=== PATIENT | female | born 1940 | race Caucasian/White ===

== ENCOUNTER → 2016-09-14 | Outpatient (CLI) | payer MEDICARE ==
[~2016-09-14] MED LIST: GLUCOPHAGE 500500 MG PO
== END ==
LOC: KOH-I 15:02
DX: I63.9 Cerebral infarction, unspecified (principal); M50.30 Other cervical disc degeneration, unspecified cervical region
CPT/HCPCS: 72050; 73030

== ENCOUNTER 2016-09-24 09:45 | Emergency (ER) | payer MEDICARE | END 2016-09-24 12:00 | disposition home or self-care (01) | LOC: ER1 09:45 | DX: M75.52 Bursitis of left shoulder (principal); I10 Essential (primary) hypertension; Z79.02 Long term (current) use of antithrombotics/antiplatelets; Z86.73 Personal history of transient ischemic attack (TIA), and cerebral infarction without residual deficits | CPT/HCPCS: 99283; J3301; Q0162 ==

== ENCOUNTER → 2020-11-10 | Day surgery (SDC) | payer MEDICARE, OTHER ==
[~2020-11-10] MED LIST changes: +ABILIFY 5 MG TAB5 MG PO; +BUTALB-ACETAMI1 EAC1 PO; +CYCLOBENZAPRINE10 MG PO; +IRON325 M1 PO; +LASIX20 MG PO; +LEVOXYL100 MCG PO; +LEXAPRO20 MG PO; +LIORESAL TAB 1010 MG PO; +LIPITOR TAB 2020 MG PO; +NORCO 5-325 TA1 EACH PO; +NORVASC10 MG PO; +PLAVIX 75 MG TA75 MG PO; +PRINIVIL20 MG PO; +PROTONIX40 MG PO; +XANAX1 MG PO
== END | disposition home or self-care (01) ==
LOC: OR 05:47
DX: D50.9 Iron deficiency anemia, unspecified (principal); K31.9 Disease of stomach and duodenum, unspecified; K29.70 Gastritis, unspecified, without bleeding; K64.4 Residual hemorrhoidal skin tags; I78.1 Nevus, non-neoplastic; F41.9 Anxiety disorder, unspecified; J45.909 Unspecified asthma, uncomplicated; I10 Essential (primary) hypertension; F32.9 Major depressive disorder, single episode, unspecified; K21.9 Gastro-esophageal reflux disease without esophagitis; E78.5 Hyperlipidemia, unspecified; E03.9 Hypothyroidism, unspecified; G25.81 Restless legs syndrome; M81.0 Age-related osteoporosis without current pathological fracture; Z87.891 Personal history of nicotine dependence; Z86.73 Personal history of transient ischemic attack (TIA), and cerebral infarction without residual deficits; Z99.3 Dependence on wheelchair; Z88.8 Allergy status to other drugs, medicaments and biological substances; Z79.02 Long term (current) use of antithrombotics/antiplatelets; Z79.899 Other long term (current) drug therapy
CPT/HCPCS: J2405; J2704; J7040; J7120

== ENCOUNTER 2021-02-12 20:02 | Emergency (ER) | payer MEDICARE | END 2021-02-12 20:57 | disposition left against medical advice (07) | LOC: ER1 20:02 | DX: Z53.21 Procedure and treatment not carried out due to patient leaving prior to being seen by health care provider (principal) ==

== ENCOUNTER → 2021-12-12 | Outpatient (CLI) | payer MEDICARE | LOC: EXRD 15:00 | DX: L03.119 Cellulitis of unspecified part of limb (principal); R60.9 Edema, unspecified; M79.605 Pain in left leg; M79.89 Other specified soft tissue disorders | CPT/HCPCS: 93971 ==

== ENCOUNTER 2021-12-17 12:23 | Inpatient (IN) | payer MEDICARE, MEDICAID ==
[~2021-12-17] VITALS: Ht 177.8 cm; Wt 80.3 kg
[~2021-12-17 12:23] MED LIST changes: +ACETAMINOPHEN-1 EAC1 PO; -BUTALB-ACETAMI1 EAC1 PO; +LISINOPRIL20 MG PO; -PRINIVIL20 MG PO
[2021-12-17 13:16] LABS: HEMOGLOBIN 10.1 gm/dl (12.3-15.3); RED BLOOD COUNT 3.34 M/UL (4.00-5.10)
[2021-12-17 13:48] LABS: BUN/CREATININE RATIO 13 (0-10)
[2021-12-17] MEDS ORDERED: ONDANSETRON ODT4 MG PO (17:00)
[2021-12-17] MEDS ORDERED: HYDROXYCHLOROQ200 MG PO (17:00)
[2021-12-17] MEDS ORDERED: NITROGLYCERIN0.4 MG SL (17:00)
[2021-12-18 02:50] LABS: BUN/CREATININE RATIO 14 (0-10)
[2021-12-18 03:04] LABS: HEMOGLOBIN 9.3 gm/dl (12.3-15.3); RED BLOOD COUNT 3.05 M/UL (4.00-5.10); WHITE BLOOD COUNT 5.2 K/UL (4.5-11.0)
[2021-12-20 06:17] LABS: HEMOGLOBIN 9.4 gm/dl (12.3-15.3); RED BLOOD COUNT 3.08 M/UL (4.00-5.10); WHITE BLOOD COUNT 5.2 K/UL (4.5-11.0)
[2021-12-21 07:47] LABS: HEMOGLOBIN 9.5 gm/dl (12.3-15.3); RED BLOOD COUNT 3.1 M/UL (4.00-5.10); WHITE BLOOD COUNT 5.3 K/UL (4.5-11.0)
== END 2021-12-22 13:13 | DRG 552 ==
LOC: ER1 12:23 → MED SURG 4 16:12 → CDU 16:12 → MED SURG 4 19:55
PROVIDERS: Physician Assistant; Physician Assistant Medical; ADMIT Internal Medicine
DX: M51.36 Other intervertebral disc degeneration, lumbar region (principal); N17.9 Acute kidney failure, unspecified; I69.354 Hemiplegia and hemiparesis following cerebral infarction affecting left non-dominant side; N39.0 Urinary tract infection, site not specified; K21.9 Gastro-esophageal reflux disease without esophagitis; E78.5 Hyperlipidemia, unspecified; F41.9 Anxiety disorder, unspecified; K29.70 Gastritis, unspecified, without bleeding; I10 Essential (primary) hypertension; Z20.822 Contact with and (suspected) exposure to COVID-19; M17.11 Unilateral primary osteoarthritis, right knee; R94.31 Abnormal electrocardiogram [ECG] [EKG]; D64.9 Anemia, unspecified; F01.50 Vascular dementia, unspecified severity, without behavioral disturbance, psychotic disturbance, mood disturbance, and anxiety; E86.0 Dehydration; Z82.3 Family history of stroke; Z98.49 Cataract extraction status, unspecified eye; Z79.02 Long term (current) use of antithrombotics/antiplatelets; Z82.49 Family history of ischemic heart disease and other diseases of the circulatory system; Z90.49 Acquired absence of other specified parts of digestive tract; Z79.899 Other long term (current) drug therapy
CPT/HCPCS: ECHO; 36415; 70450; 71045; 72125; 72128; 72131; 72170; 73552; 78452; 80048; 80053; 81001; 82550; 82553; 83735; 84484; 85025; 85027; 87077; 87086; 87186; 93005; 93017; 93306; 93880; 97110-GP-CQ; 97116-GP-CQ; 97161; 97166; 97530; 99285; A9502; J0696; J1644; J2785; U0002

== ENCOUNTER → 2022-02-21 | Outpatient (CLI) | payer MEDICARE ==
[~2022-02-21] VITALS: Ht 177.8 cm; Wt 80.3 kg
[~2022-02-21] MED LIST changes: +HYDROXYCHLOROQ200 MG PO; +NITROGLYCERIN0.4 MG SL; +ONDANSETRON ODT4 MG PO
== END ==
LOC: OPSV 13:00
DX: D50.9 Iron deficiency anemia, unspecified (principal)
CPT/HCPCS: 96365; J1756

== ENCOUNTER → 2022-02-28 | Outpatient (CLI) | payer MEDICARE ==
[~2022-02-28] VITALS: Ht 177.8 cm; Wt 80.3 kg
== END ==
LOC: OPSV 13:51
DX: D50.9 Iron deficiency anemia, unspecified (principal)
CPT/HCPCS: 96365; J1756

== ENCOUNTER → 2022-03-06 | Outpatient (CLI) | payer MEDICARE ==
[~2022-03-06] VITALS: Ht 177.8 cm; Wt 80.3 kg
== END ==
LOC: OPSV 13:00
DX: D50.9 Iron deficiency anemia, unspecified (principal)
CPT/HCPCS: 96365; J1756

== ENCOUNTER → 2022-03-31 | Outpatient (CLI) | payer MEDICARE ==
[~2022-03-31] VITALS: Ht 177.8 cm; Wt 80.3 kg
== END ==
LOC: OPSV 12:53
DX: D50.9 Iron deficiency anemia, unspecified (principal)
CPT/HCPCS: 96365; J1756

== ENCOUNTER → 2022-04-04 | Outpatient (CLI) | payer MEDICARE | LOC: OPSV 14:48 | DX: D50.9 Iron deficiency anemia, unspecified (principal) | CPT/HCPCS: 96365; J1756 ==